=== PATIENT | female | born 1990 | race Caucasian/White ===

== ENCOUNTER 2018-04-19 07:00 | Inpatient (IN) | payer OTHER ==
[2018-04-19 07:45] VITALS: BMI 29.9
[2018-04-19] MEDS ORDERED: OXYTOCIN 20 UNITS in 0.9% NS 40 UNIT/2,000 ML INFUS.BAG IV ONE (08:36)
[2018-04-19] MEDS ORDERED: ceFAZolin SODIUM 1 GM VIAL ONE (08:39)
[2018-04-19] MEDS ORDERED: morphine SULFATE/Preservative Free 0.5 MG/ML (1cc Syringe) ONE (08:39)
[2018-04-19] MEDS ORDERED: CITRIC ACID/SODIUM CITRATE 30 ML UNIT-DOSE CUP PO ONE (08:40)
[2018-04-19] MEDS ORDERED: PHENYLEPHRINE HCL 10 MG/1 ML SINGLE DOSE VIAL ONE (08:40)
[2018-04-19] MEDS ORDERED: METHYLERGONOVINE MALEATE 0.2 MG/1 ML AMP IM PRN (08:42)
[2018-04-19] MEDS ORDERED: ELECTROLYTE-148 SOLN 1,000 ML IV SCH (08:45)
[2018-04-19] MEDS ORDERED: OXYTOCIN 20 UNITS in 0.9% NS 20 UNIT/1,000 ML INFUS.BAG IV SCH (08:45)
[2018-04-19] MEDS ORDERED: WITCH HAZEL 50% (TUCKS) 40 PAD/JAR PAD TP PRN (08:46)
[2018-04-19] MEDS ORDERED: BENZOCAINE 28 GM HEMORRHOIDAL OINTMENT PR PRN (08:46)
[2018-04-19] MEDS ORDERED: BENZOCAINE 20% 57 GM BOTTLE TP PRN (08:46)
--- NOTE | 2018-04-19 08:50 | HP ---
Past Medical History - Primary Care Physician PCP:: Juliet Nunes - Admission Chief Complaint: Previous Section History of Present Illness: 28 P1 with previous CS at 39 weeks for repeat Section no rom bleeding Lou or ruq pain + AFM History Source: Patient - Past Medical History ...: 2 ...Para: 1 ...Term: 1 ...EDC by Sono: 04/27/18 - Past Surgical History Past Surgical History: Yes: Hx Myomectomy: No Hx Transabdominal Cerclage: No - Smoking History Smoking history: Never smoked Have you smoked in the past 12 months: No - Alcohol/Substance Use Hx Alcohol Use: No History of Substance Use: reports: None - Social History Usual Living Arrangement: Yes: With Spouse History of Recent Travel: No Home Medications - Allergies Allergies/Adverse Reactions: Allergies Allergy/AdvReac Type Severity Reaction Status Date / Time No Known Allergies Allergy Verified 04/19/18 07:57 - Home Medications Home Medications: Ambulatory Orders Tablet 1 tab PO DAILY 04/19/18 Review of Systems - Review of Systems Constitutional: reports: No Symptoms Eyes: reports: No Symptoms HENT: reports: No Symptoms Neck: reports: No Symptoms Cardiovascular: reports: No Symptoms Respiratory: reports: No Symptoms Gastrointestinal: reports: No Symptoms Genitourinary: reports: No Symptoms Breasts: reports: No Symptoms Reported Musculoskeletal: reports: No Symptoms Integumentary: reports: No Symptoms Neurological: reports: No Symptoms Endocrine: reports: No Symptoms Hematology/Lymphatic: reports: No Symptoms Psychiatric: reports: No Symptoms Physical Exam - Maternity Vital Signs: Vital Signs Temperature 98.1 F 04/19/18 07:32 Pulse Rate 84 04/19/18 07:32 Respiratory Rate 18 04/19/18 07:32 Blood Pressure 121/71 04/19/18 07:32 O2 Sat by Pulse Oximetry (%) Constitutional: Yes: Well Nourished, No Distress HENT: Yes: WNL Neck: Yes: WNL Cardiovascular: Yes: WNL Lungs: Clear to auscultation - Abdominal Exam/OB Fundal Height: 40 Number of Fetuses: Single Presentation: Vertex Contractions: No Monitor Mode: External Category: I Accelerations: Non-Uniform Decelerations: None - Vaginal Exam/OB Amniotic Membrane Status: Intact - Physical Exam Musculoskeletal: Yes: WNL Extremities: Yes: WNL Edema: No Integumentary: Yes: WNL Psychiatric: Yes: WNL, Alert, Oriented Hemorrhage Risk Assessment - Risk Factors Risk Score: 1 Risk Level: Medium Risk Problem List - Problems (1) Previous delivery affecting , antepartum Code(s): O34.219 - MATERNAL CARE FOR UNSP TYPE SCAR FROM PREVIOUS DEL (2) 39 weeks gestation of Code(s): Z3A.39 - 39 WEEKS GESTATION OF Assessment/Plan IUP at 39 weeks Previous Section Plan Repeat CS
[2018-04-19] MEDS ORDERED: OXYTOCIN 10 UNITS/ML VIAL ONE (09:15)
[2018-04-19] MEDS ORDERED: DEXAMETHASONE SOD PHOSPHATE 4 MG/1 ML VIAL ONE (09:37)
--- NOTE | 2018-04-19 09:57 | SURG ---
Surgery Instrument Room Technician Note Instrument Room Technician: Haroon Steen MD Date of Service: 04/19/18 Diagnosis: at term Procedure: repeat C section I was present for the entirety of the operative procedure. For further detail, please refer to operative report.
[2018-04-19 09:58] LABS: ARTERIAL BLD GAS O2 SATURATION 22.8 % (90-98.9); ARTERIAL BLOOD GAS BASE EXCESS -2.8 meq/l (-2-2); ARTERIAL BLOOD GAS PCO2 55.2 mmHg (35-45); ARTERIAL BLOOD GAS pH 7.27 (7.35-7.45)
[2018-04-19 10:00] LABS: ARTERIAL BLOOD GAS PO2 16.5 mmHg (80-100)
[2018-04-19 10:01] LABS: VENOUS PC02 50.8 mmHg (38-52); VENOUS PH 7.28 (7.32-7.42); VENOUS PO2 18.5 mmHg (28-48)
[2018-04-19] MEDS ORDERED: ONDANSETRON 4 MG/2 ML VIAL IVPUSH PRN (10:01)
--- NOTE | 2018-04-19 10:17 | OP ---
Operative Note - Note: Operative Date: 04/19/18 Pre-Operative Diagnosis: Previous Section Operation: Repeat Section Findings: Live infant Post-Operative Diagnosis: Same as Pre-op Surgeon: Juliet Nunes Care Services Manager: Liborio Steen Anesthesia: Spinal Specimens Removed: Placenta true knot in cord Estimated Blood Loss (mls): 700 Operative Report Dictated: Yes
[2018-04-19] MEDS ORDERED: TUBERCULIN PPD 5 TU/0.1ML SYRINGE (IN PATIENT USE ONLY) ID ONE (10:57)
--- NOTE | 2018-04-19 11:01 | OP ---
DATE OF OPERATION: 04/19/2018 PREOPERATIVE DIAGNOSIS: Previous section, intrauterine at 39 weeks. OPERATION: Repeat section. POSTOPERATIVE DIAGNOSIS: Live and true knot in the cord. SURGEON: Emily Nunes MD MANAGER DIESEL: Haroon Steen MD ANESTHESIA: Spinal. ANESTHESIOLOGIST: Janny Butler MD PROCEDURE: Patient was taken to the operating room, placed in supine position, prepped and draped in the usual sterile fashion. A time-out was performed in accordance with hospital regulations. Scalpel was then used to make a Pfannenstiel skin incision through the patients previous scar. Cautery was then used to go through the layers of the abdominal wall to the level of the fascia. Fascia was cut in the midline, and cautery was then used to open the fascia in smiling fashion. Judi was then used to bluntly and sharply dissect the rectus muscle off the fascia. The muscle was split in the midline. Peritoneal cavity was then entered and carried up and downwards. Bladder retractor was then placed. Scalpel was then used to make a low transverse uterine incision. Incision was carried up with use of bandage scissors. A live was delivered in OT position. Nose and mouth suction was performed. Shoulders were delivered without difficulty. The cord was clamped and cut. Cord blood obtained. Placenta was manually extracted from the uterus. Delayed Cord clamping was done. Infant was handed to the child health associate. Placenta was manually extracted from the uterus. Uterus exteriorized and cleaned with clean lap pads. Uterine incision was then closed using 0 Biosyn suture, first layer with continuous and locking and second layer imbricating the first layer. Hemostasis was achieved. Uterus anteriorized. Abdominal cavity cleaned with clean lap pads. Peritoneum closed using 0 Biosyn suture. Muscles approximated in the midline using 0 Biosyn suture. Fascia was then closed using 0 Vicryl suture in 2 parts. Skin was then closed using 3-0 Vicryl in subcuticular fashion. Wounds washed and dressed. Patient tolerated the procedure well. Estimated blood loss was 700 mL. EMILY NUNES M.D. [id number] MTDD
[2018-04-20] MEDS: IBUPROFEN 800 MG/8 ML IJ IVPB PRN ×2 (04:26→12:27)
--- NOTE | 2018-04-20 04:44 | PN ---
Progress Note (SOAP) - Current Medications Current Medications: Active Medications Benzocaine (Americaine 20% [place] -) 1 spray TP PRN PRN PRN Reason: Pain - Topical Benzocaine (Americaine Ointment -) 1 applic [place] PRN PRN PRN Reason: Pain - Topical Bisacodyl (Dulcolax Suppository -) 10 mg RC PRN PRN PRN Reason: CONSTIPATION Diphenhydramine HCl (Benadryl Injection -) 25 mg IVPUSH Q4H PRN PRN Reason: Pruritis Parenteral Electrolytes (Plasma-Lyte 148 -) 1,000 mls @ 125 mls/hr IV [facility] Last Admin: 04/19/18 07:30 Dose: 125 mls/hr Oxytocin/Sodium Chloride (Normal Saline+20 Units Oxytocin -) 20 unit in 1,000 mls @ 125 mls/hr IV [facility] Last Admin: 04/19/18 09:15 Dose: 125 mls/hr Ibuprofen (Caldolor Injection -) 800 mg IVPB Q8H PRN PRN Reason: FEVER Last Admin: 04/20/18 04:26 Dose: 800 mg Ibuprofen (Motrin -) 600 mg PO Q4H PRN PRN Reason: PAIN LEVEL 1 - 3 Methylergonovine Maleate (Methergine Injection -) 0.2 mg IM Q4H PRN PRN Reason: Excessive Bleeding (L&D) Ondansetron HCl (Zofran Injection) 4 mg IVPUSH Q4H PRN PRN Reason: NAUSEA Oxycodone HCl (Roxicodone -) 5 mg PO Q4H PRN PRN Reason: PAIN LEVEL 1-5 Oxycodone HCl (Roxicodone -) 10 mg PO Q4H PRN PRN Reason: PAIN LEVEL 6-10 Simethicone (Mylicon -) 80 mg PO Q4H PRN PRN Reason: GAS Witch Gemma/Glycerin (Tucks Pads -) 1 pad TP PRN PRN PRN Reason: Pain - Topical - Objective Vital Signs: Vital Signs Temperature 98.4 F 04/20/18 01:58 Pulse Rate 70 04/20/18 01:58 Respiratory Rate 18 04/20/18 04:00 Blood Pressure 120/57 L 04/20/18 01:58 O2 Sat by Pulse Oximetry (%) 100 04/19/18 21:00 Constitutional: Yes: Well Nourished, No Distress Cardiovascular: Yes: WNL Respiratory: Yes: WNL Gastrointestinal: Yes: WNL ....Post : Yes: Uterus firm, Uterus non-tender Musculoskeletal: Yes: WNL Extremities: Yes: WNL Neurological: Yes: WNL, Alert, Oriented Problem List - Problems (1) Previous delivery affecting , antepartum Code(s): O34.219 - MATERNAL CARE FOR UNSP TYPE SCAR FROM PREVIOUS DEL (2) 39 weeks gestation of Code(s): Z3A.39 - 39 WEEKS GESTATION OF Assessment/Plan SP Repeat CS POD 1 Plan OOB Continue present management
[2018-04-20 08:05] LABS: BASO % 0.4 % (0-2.0); EOS % 0.3 % (0-4.5); HEMATOCRIT 31.1 % (32.4-45.2); HEMOGLOBIN 9.8 GM/dL (10.7-15.3); LYMPH % 27.9 % (8-40); MCH 24.2 pg (25.7-33.7); MCHC 31.5 g/dl (32.0-36.0); MEAN CELL VOLUME 76.9 fl (80-96); MEAN PLT VOLUME 10.6 fl (7.5-11.1); MONO % 8.1 % (3.8-10.2); NEUT % 63.3 % (42.8-82.8); PLATELET COUNT 104 K/MM3 (134-434); RBC 4.04 M/mm3 (3.60-5.2); RDW 14.4 % (11.6-15.6); WHITE BLOOD COUNT 9.9 K/mm3 (4.0-10.0)
[2018-04-20] MEDS ORDERED: BISACODYL 10 MG SUPP.RECT RC PRN (08:42)
[2018-04-20] MEDS ORDERED: oxyCODONE HCL 5 MG TABLET PO PRN (08:46)
[2018-04-20] MEDS: SIMETHICONE 80 MG TAB.CHEW (FP) PO PRN ×2 (12:43→20:46)
--- NOTE | 2018-04-20 14:27 | PN ---
Progress Note, Physician Chief Complaint: s/p c section under spinal anesthesia History of Present Illness: post op day one with duramorph for post op pain control - Current Medication List Current Medications: Active Medications Benzocaine (Americaine 20% [place] -) 1 spray TP PRN PRN PRN Reason: Pain - Topical Benzocaine (Americaine Ointment -) 1 applic [place] PRN PRN PRN Reason: Pain - Topical Bisacodyl (Dulcolax Suppository -) 10 mg RC PRN PRN PRN Reason: CONSTIPATION Diphenhydramine HCl (Benadryl Injection -) 25 mg IVPUSH Q4H PRN PRN Reason: Pruritis Parenteral Electrolytes (Plasma-Lyte 148 -) 1,000 mls @ 125 mls/hr IV [facility] Last Admin: 04/19/18 07:30 Dose: 125 mls/hr Oxytocin/Sodium Chloride (Normal Saline+20 Units Oxytocin -) 20 unit in 1,000 mls @ 125 mls/hr IV [facility] Last Admin: 04/19/18 09:15 Dose: 125 mls/hr Ibuprofen (Caldolor Injection -) 800 mg IVPB Q8H PRN PRN Reason: FEVER Last Admin: 04/20/18 12:27 Dose: 800 mg Ibuprofen (Motrin -) 600 mg PO Q4H PRN PRN Reason: PAIN LEVEL 1 - 3 Methylergonovine Maleate (Methergine Injection -) 0.2 mg IM Q4H PRN PRN Reason: Excessive Bleeding (L&D) Ondansetron HCl (Zofran Injection) 4 mg IVPUSH Q4H PRN PRN Reason: NAUSEA Oxycodone HCl (Roxicodone -) 5 mg PO Q4H PRN PRN Reason: PAIN LEVEL 1-5 Oxycodone HCl (Roxicodone -) 10 mg PO Q4H PRN PRN Reason: PAIN LEVEL 6-10 Simethicone (Mylicon -) 80 mg PO Q4H PRN PRN Reason: GAS Last Admin: 04/20/18 12:43 Dose: 80 mg Witch Gemma/Glycerin (Tucks Pads -) 1 pad TP PRN PRN PRN Reason: Pain - Topical - Objective Vital Signs: Vital Signs Temperature 98.2 F 04/20/18 06:00 Pulse Rate 72 04/20/18 06:00 Respiratory Rate 20 04/20/18 09:00 Blood Pressure 119/69 04/20/18 06:00 O2 Sat by Pulse Oximetry (%) 100 04/19/18 21:00 Constitutional: Yes: Well Nourished Cardiovascular: Yes: WNL Respiratory: Yes: WNL Gastrointestinal: Yes: WNL Labs: CBC, BMP 04/20/18 07:00 Assessment/Plan No adverse effect of anesthetic, pain controlled, no nausea or vomiting, dept of anesthesia will sign off care at this time.
[2018-04-20] MEDS: oxyCODONE HCL 5 MG TABLET PO PRN (20:46)
[2018-04-20] MEDS: IBUPROFEN 600 MG TABLET (FP) PO PRN (20:49)
[2018-04-21] MEDS: SIMETHICONE 80 MG TAB.CHEW (FP) PO PRN ×3 (06:12→19:10)
[2018-04-21] MEDS: oxyCODONE HCL 5 MG TABLET PO PRN ×3 (06:13→19:11)
[2018-04-21] MEDS: IBUPROFEN 600 MG TABLET (FP) PO PRN ×3 (06:13→19:11)
--- NOTE | 2018-04-21 06:55 | PN ---
Post Progress Note - Subjective Subjective: Pt asleep upon my arrival to the room. No acute events overnight per nursing staff. Type of Delivery: Repeat C/S Vital Signs: Vital Signs Temperature 98.1 F 04/20/18 22:00 Pulse Rate 73 04/20/18 22:00 Respiratory Rate 18 04/20/18 22:00 Blood Pressure 124/69 04/20/18 22:00 O2 Sat by Pulse Oximetry (%) 100 04/20/18 21:00 Breast Exam: Yes: Soft Incision: Yes: Dressing dry and intact Abdomen/GI: Yes: Abdomen soft Extremities: Yes: Calves non-tender Perineum: Yes: Intact Activity: Ambulating - Labs Labs: CBC WBC 9.9 K/mm3 (4.0-10.0) 04/20/18 07:00 RBC 4.04 M/mm3 (3.60-5.2) 04/20/18 07:00 Hgb 9.8 GM/dL (10.7-15.3) L 04/20/18 07:00 Hct 31.1 % (32.4-45.2) L 04/20/18 07:00 MCV 76.9 fl (80-96) L 04/20/18 07:00 MCH 24.2 pg (25.7-33.7) L 04/20/18 07:00 MCHC 31.5 g/dl (32.0-36.0) L 04/20/18 07:00 RDW 14.4 % (11.6-15.6) 04/20/18 07:00 Plt Count 104 K/MM3 (134-434) L 04/20/18 07:00 MPV 10.6 fl (7.5-11.1) D 04/20/18 07:00 Absolute Neuts (auto) 6.3 K/mm3 (1.5-8.0) 04/20/18 07:00 Neutrophils % 63.3 % (42.8-82.8) 04/20/18 07:00 Lymphocytes % 27.9 % (8-40) D 04/20/18 07:00 Monocytes % 8.1 % (3.8-10.2) 04/20/18 07:00 Eosinophils % 0.3 % (0-4.5) 04/20/18 07:00 Basophils % 0.4 % (0-2.0) 04/20/18 07:00 Nucleated RBC % 0 % (0-0) 04/20/18 07:00 Problem List - Problems (1) delivery delivered Code(s): O82 - ENCOUNTER FOR DELIVERY WITHOUT INDICATION Assessment/Plan 28 yo POD#1 s/p repeat delivery AFVSS HGb 9.8 regular diet ambulation routine care
[2018-04-21] MEDS ORDERED: SENNOSIDES/DOCUSATE COMBO (SENNA PLUS) TABLET (UD) PO PRN (20:55)
[2018-04-22] MEDS: SIMETHICONE 80 MG TAB.CHEW (FP) PO PRN ×2 (07:12→12:24)
[2018-04-22] MEDS: IBUPROFEN 600 MG TABLET (FP) PO PRN ×2 (07:13→12:24)
[2018-04-22 08:17] VITALS: BP 115/69; PULSE 77; TEMP 98.5
[2018-04-22 08:30] LABS: BASO % 0.5 % (0-2.0); EOS % 1.3 % (0-4.5); HEMATOCRIT 34.3 % (32.4-45.2); HEMOGLOBIN 10.8 GM/dL (10.7-15.3); LYMPH % 36.9 % (8-40); MCH 24.5 pg (25.7-33.7); MCHC 31.6 g/dl (32.0-36.0); MEAN CELL VOLUME 77.6 fl (80-96); MEAN PLT VOLUME 8.5 fl (7.5-11.1); NEUT % 56.3 % (42.8-82.8); PLATELET COUNT 163 K/MM3 (134-434); RBC 4.42 M/mm3 (3.60-5.2); RDW 14.8 % (11.6-15.6); WHITE BLOOD COUNT 8.3 K/mm3 (4.0-10.0)
--- NOTE | 2018-04-22 09:01 | DS ---
Physical Exam-AIR CONDITIONING MANAGER Vital Signs: Vital Signs Temperature 98.5 F 04/22/18 08:15 Pulse Rate 77 04/22/18 08:15 Respiratory Rate 18 04/22/18 08:15 Blood Pressure 115/69 04/22/18 08:15 O2 Sat by Pulse Oximetry (%) 100 04/20/18 21:00 Labs: CBC, BMP 04/22/18 08:00 Delivery - Delivery Type of Anesthesia: Epidural EBL (cc): 700 Delivery, Single - Stages of Labor Date of Delivery: 04/19/18 Time of Delivery: 09:14 Time Placenta Delivered: 09:15 - Condition of Infant Automation Machine Builder/[place] Machine Operator Present: No Infant Gender: Female Weight: 8 lb 10 oz Position: Right, OT Total Hours ROM (Hrs/Mins): 1M - 1 Minute Total Score: 9 5 Minutes Total Score: 9 - Feeding Plan Initial Plan: Elected not to breastfeed exclusively throughout hospitalization Discharge Summary Reason For Visit: REPEAT Current Active Problems 39 weeks gestation of (Acute) delivery delivered (Acute) Previous delivery affecting , antepartum (Acute) Procedures: Principal: delivery - repeat Hospital Course: Pt admitted on 04/19/18 for scheduled repeat delivery. Underwent uncomplicated procedure (see operative note) and uncomplicated post op recovery. Pt discharged home on post op day 3. - Instructions Referrals: Vilma Cruz DO [Staff Physician] - - Home Medications Comprehensive Discharge Medication List: Ambulatory Orders Tablet 1 tab PO DAILY 04/19/18
--- NOTE | 2018-04-26 15:02 | PATH ---
Surgical Pathology Report Patient Name: JAROD JIMENES Med. Rec. #: [id number] /Age/Gender: 1990 (Age: 28) / F Account: [id number] Location: [facility] OBS/ALTERATION HAND Taken: 04/19/2018 Received: 04/22/2018 Reported: 04/26/2018 Physicians: Juliet Nunes M.D. Specimen(s) Received PLACENTA Clinical History 2013 Final Diagnosis PLACENTA, SECTION: 578 G THIRD TRIMESTER PLACENTA WITH TRIVASCULAR UMBILICAL CORD AND UNREMARKABLE PLACENTAL MEMBRANES. Electronically Signed Liliana Chaudhry M.D. Gross Description The specimen is received fresh labeled placenta and is a 578 gram, 19.0 x 15.5 x 2.4 cm. placenta with attached membranes and umbilical cord. The attached membranes are horner, translucent with focal opacities and insert marginally. The umbilical cord measures 21 cm. in length and averages 0.9 cm. in diameter. The cord inserts eccentrically, 6.5 cm. to the nearest margin. There is a true knot present in the umbilical cord. Cut surface of the umbilical cord reveals 3 vessels. The surface is garcia-blue with minimal fibrin deposition and appropriate caliber vessels. The maternal surface is red-brown with focal defects. Sectioning reveals red-brown, spongy parenchyma. No lesions are identified. Elect Equip Maint Eng sections are submitted in three cassettes as follows: 1- membrane rolls and umbilical cord; 2-3- full thickness sections of placenta. /04/25/2018 saudi04/25/2018
== END 2018-04-22 14:00 | disposition home or self-care (01) | DRG 540 ==
LOC: JLDR 07:00 → J3W 11:12
PROVIDERS: ADMIT Obstetrics & Gynecology; ATTEND Obstetrics & Gynecology
PROC: 10D00Z1 Extraction of Products of Conception, Low, Open Approach (ICD-10-PCS; principal; 2018-04-19)
DX: O34.211 Maternal care for low transverse scar from previous cesarean delivery (principal); O69.2XX0 Labor and delivery complicated by other cord entanglement, with compression, not applicable or unspecified; Z3A.39 39 weeks gestation of pregnancy; Z37.0 Single live birth
CPT/HCPCS: 36415; 36600; 82803; 85025; 88307-TC